=== PATIENT | female | born 1995 | race Caucasian/White ===

== ENCOUNTER 2016-02-25 00:17 | Emergency (ER) | payer SELFPAY ==
[~2016-02-25] VITALS: Ht 162.6 cm; Wt 69.0 kg
[~2016-02-25 00:17] MED LIST: ALTAVERA1 EACH PO; KEFLEX500 MG PO; NAPROSYN500 MG PO
[2016-02-25 01:16] LABS: MCH 28.8 PG (29.0-34.0); MCHC 34.7 G/DL (30.0-36.0); MEAN PLAT.VOLUME 10.1 uM^3 (9.5-12.4); PLATELET COUNT 233 K/uL (156-360); RBC DIS.WIDTH-CV 12.1 % (11.8-14.6); RBC DIS.WIDTH-SD 36.9 % (39-53); RED BLOOD COUNT 5.18 M/uL (3.80-5.20)
[2016-02-25 01:26] LABS: CHLORIDE 105 mEq/L (99-109); POTASSIUM 3.6 mEq/L (3.7-5.4); SODIUM 136 mEq/L (136-147)
[2016-02-25 01:28] LABS: GLUCOSE 102 mg/dL (70-99)
[2016-02-25 01:29] LABS: ANION GAP 13 MEQ/L (2-14)
[2016-02-25 01:30] LABS: TOTAL BILIRUBIN 0.8 mg/dL (0.0-1.0)
[2016-02-25 01:32] LABS: ALKALINE PHOSPHATASE 76 IU/L (3-129); GFR ESTIMATE (CALCULATED) > 59 mL/min/
[2016-02-25 01:33] LABS: UREA NITROGEN (BUN) 9 mg/dL (9-23)
[2016-02-25 01:35] LABS: LIPASE 17 U/L (1.0-51.0)
[2016-02-25 01:40] LABS: BACTERIA RARE; CASTS NONE SEEN /LPF; CRYSTALS NONE SEEN; EPITHELIAL CELLS RARE; MUCUS NONE SEEN; RED BLOOD CELLS 0-5 /HPF (0-5); WHITE BLOOD CELLS 0-5 /HPF (0-5)
[2016-02-25 01:41] LABS: QUANTITATIVE HCG < 4.0 MIU/ML
[2016-02-25] MEDS ORDERED: ZOFRAN ODT4 MG PO (01:47)
[2016-02-25 02:10] VITALS: BP 120/66
== END 2016-02-25 02:14 | disposition home or self-care (01) ==
LOC: RME 00:17 → EME 00:17 → RME 02:14
PROVIDERS: Physician Assistant
DX: R11.10 Vomiting, unspecified (principal)
CPT/HCPCS: 80053; 81015; 83690; 84702; 85027; 99281; 99285; J2405; J7030